=== PATIENT | male | born 1970 | race Caucasian/White ===

== ENCOUNTER 2018-06-12 06:16 | Inpatient (IN) | payer MEDICAID ==
[2018-06-12] MEDS: ONDANSETRON 4 MG INJ IV ×2 (08:26→09:02)
[2018-06-12] MEDS: HYDROmorphONE 1 MG/ML SYG IV ×2 (08:26→09:02)
[2018-06-12 08:37] LABS: ADD MAN DIFF? NO
[2018-06-12] MEDS: HEPARIN 25000 UNITS/250 ML 250 ML IV (08:38)
[2018-06-12 08:59] LABS: ALANINE AMINOTRANSFERASE 25 IU/L (13-69); ALBUMIN 3.9 g/dl (3.3-4.9); ALBUMIN/GLOBULIN RATIO 1.39; ALKALINE PHOSPHATASE 92 IU/L (42-121); ANION GAP 10 (8-16); ASPARTATE AMINO TRANSFERASE 20 IU/L (15-46); BILIRUBIN,INDIRECT 0.4 mg/dl (0-1.1); BILIRUBIN,TOTAL 0.4 mg/dl (0.2-1.3); BLOOD UREA NITROGEN 18 mg/dl (7-20); CALCIUM 9.1 mg/dl (8.4-10.2); CARBON DIOXIDE 24 mmol/L (21-31); CHLORIDE 110 mmol/L (97-110); CREATININE 0.88 mg/dl (0.61-1.24); GLUCOSE 99 mg/dl (70-220); POTASSIUM 4.7 mmol/L (3.5-5.1); SODIUM 139 mmol/L (135-144); TOTAL PROTEIN 6.7 g/dl (6.1-8.1)
[2018-06-12] MEDS: SOD CHLORIDE 0.9% 500 ML IV (09:10)
[2018-06-12 09:12] LABS: TROPONIN-I < 0.010 ng/ml (0.000-0.120)
[2018-06-12 09:14] LABS: INR 1.06; PROTIME 13.9 Sec (11.9-14.9); PT RATIO 1.1
[2018-06-12 09:18] LABS: WHITE BLOOD COUNT 5.5 10^3/ul (4.8-10.8)
[2018-06-12 09:18] LABS: BASOPHILS % 0.4 % (0.0-2.0); EOSINOPHILS # 0.1 10^3/ul (0.0-0.5); HEMATOCRIT 32.3 % (42.0-52.0); HEMOGLOBIN 10.6 g/dl (14.0-18.0); LYMPHOCYTES % 19.1 % (15.0-51.0); MEAN CORPUSCULAR HEMOGLOBIN 25.1 pg (29.0-33.0); MEAN CORPUSCULAR HGB CONC 32.8 g/dl (32.0-37.0); MEAN CORPUSCULAR VOLUME 76.4 fl (82.0-101.0); MEAN PLATELET VOLUME 10.5 fl (7.4-10.4); MONOCYTE # 0.7 10^3/ul (0.3-0.9); MONOCYTES % 12.7 % (0.0-11.0); NEUTROPHIL # 3.6 10^3/ul (1.6-7.5); NEUTROPHILS % 65.2 % (39.0-77.0); NUCLEATED RED BLOOD CELLS% 0.4 /100WBC (0.0-0.0); PLATELET COUNT 202 10^3/UL (140-415); RED BLOOD COUNT 4.23 10^6/ul (4.70-6.10)
[2018-06-12 09:21] LABS: D-DIMER 377.13 ng/ml (<460)
[2018-06-12] MEDS ORDERED: ACETAMINOPHEN 325 MG TAB PO ×2 (10:00→13:00)
[2018-06-12] MEDS ORDERED: ONDANSETRON 4 MG INJ IV ×2 (10:00→13:00)
[2018-06-12] MEDS ORDERED: NACL 0.9% 3 ML SYG IV (13:00)
[2018-06-12] MEDS: ENOXAPARIN 60 MG/0.6 ML SYG SC ×2 (13:32→21:00)
[2018-06-12] MEDS: WARFARIN 10 MG TAB PO (16:58)
[2018-06-12 17:08] LABS: CREATINE KINASE 91 IU/L (23-200)
[2018-06-12 17:20] LABS: CK INDEX 0.6; CK-MB 0.57 ng/ml (0.0-2.4); TROPONIN-I < 0.010 ng/ml (0.000-0.120)
[2018-06-12] MEDS: HYDROmorphONE 0.5 MG/0.5 ML SYG IV ×2 (17:25→21:29)
[2018-06-12 23:27] LABS: CREATINE KINASE 99 IU/L (23-200)
[2018-06-12 23:36] LABS: CK INDEX 0.8; CK-MB 0.76 ng/ml (0.0-2.4); TROPONIN-I < 0.010 ng/ml (0.000-0.120)
[2018-06-13] MEDS: ENOXAPARIN 60 MG/0.6 ML SYG SC (01:19)
[2018-06-13] MEDS: HYDROmorphONE 0.5 MG/0.5 ML SYG IV ×3 (01:22→09:36)
[2018-06-13 05:52] LABS: ADD MAN DIFF? NO
[2018-06-13 06:03] LABS: WHITE BLOOD COUNT 5.7 10^3/ul (4.8-10.8)
[2018-06-13 06:03] LABS: BASOPHILS % 0.5 % (0.0-2.0); EOSINOPHILS # 0.1 10^3/ul (0.0-0.5); EOSINOPHILS % 2.5 % (0.0-7.0); HEMATOCRIT 36.7 % (42.0-52.0); HEMOGLOBIN 12.2 g/dl (14.0-18.0); LYMPHOCYTES # 1.7 10^3/ul (0.8-2.9); MEAN CORPUSCULAR HEMOGLOBIN 25.1 pg (29.0-33.0); MEAN CORPUSCULAR HGB CONC 33.2 g/dl (32.0-37.0); MEAN CORPUSCULAR VOLUME 75.4 fl (82.0-101.0); MONOCYTE # 0.8 10^3/ul (0.3-0.9); MONOCYTES % 14.6 % (0.0-11.0); PLATELET COUNT 235 10^3/UL (140-415); RED BLOOD COUNT 4.87 10^6/ul (4.70-6.10); RED CELL DISTRIBUTION WIDTH 20.3 % (11.5-14.5)
[2018-06-13 06:22] LABS: INR 2.26; PROTIME 25.5 Sec (11.9-14.9)
[2018-06-13 08:05] LABS: ANION GAP 10 (8-16); BLOOD UREA NITROGEN 16 mg/dl (7-20); CALCIUM 9.1 mg/dl (8.4-10.2); CARBON DIOXIDE 24 mmol/L (21-31); CHLORIDE 108 mmol/L (97-110); CHOL/HDL RATIO 3.3 RATIO; CHOLESTEROL 177 mg/dl (100-200); CREATININE 1.04 mg/dl (0.61-1.24); GLUCOSE 92 mg/dl (70-220); HDL CHOLESTEROL 53 mg/dl (27-67); LDL CHOLESTEROL,CALCULATED 85 mg/dl; MAGNESIUM 1.9 mg/dl (1.7-2.5); PHOSPHORUS 3.6 mg/dl (2.5-4.9); POTASSIUM 4.3 mmol/L (3.5-5.1); SODIUM 138 mmol/L (135-144); TRIGLYCERIDES 195 mg/dl (0-149)
[2018-06-13 12:55] LABS: HEMOGLOBIN A1C 5.6 % (0-5.9)
[2018-06-13] MEDS ORDERED: WARFARIN 2.5 MG TAB PO (17:00)
[2018-06-13] MEDS ORDERED: WARFARIN 5 MG TAB PO (17:00)
[2018-06-13] MEDS ORDERED: WARFARIN 7.5 MG TAB PO (17:00)
[2018-06-14] MEDS ORDERED: WARFARIN 7.5 MG TAB PO (09:00)
== END 2018-06-13 13:52 | disposition home or self-care (01) | DRG 313 ==
LOC: E/R 06:16 → 6WM 09:51
DX: R07.89 Other chest pain (principal); D68.2 Hereditary deficiency of other clotting factors; D64.9 Anemia, unspecified; E66.9 Obesity, unspecified; Z79.01 Long term (current) use of anticoagulants; Z86.711 Personal history of pulmonary embolism; Z86.718 Personal history of other venous thrombosis and embolism; Z91.19 Patient's noncompliance with other medical treatment and regimen; Z68.33 Body mass index [BMI] 33.0-33.9, adult; Z76.5 Malingerer [conscious simulation]
CPT/HCPCS: 36415; 71045; 80048; 80053; 80061; 80307; 82550; 82553; 83036; 83735; 84100; 84443; 84484; 85025; 85378; 85610; 85730; 93005; 93970; 96374; 96375; 99285-25